=== PATIENT | female | born 1980 | race Hispanic/Latino ===

== ENCOUNTER 2018-08-14 13:57 | Observation (INO) | payer MEDICAID, OTHER ==
[~2018-08-14] VITALS: Ht 147.3 cm; Wt 49.5 kg
[2018-08-14] MEDS ORDERED: FERR1TAB8 PO (14:42)
[2018-08-14] MEDS ORDERED: SENN1TAB8 PO (14:42)
[2018-08-14] MEDS ORDERED: AMLO10TA PO (14:42)
[2018-08-14] MEDS ORDERED: B-12100T2 PO (14:42)
[2018-08-14] MEDS ORDERED: CALC1CAP PO (14:42)
[2018-08-14 16:40] LABS: BASO # 0.1 10^3/uL (0.0-0.2); BASO % 0.7 % (0.0-1.0); EOS # 0.2 10^3/uL (0.0-0.50); EOS % 2.4 % (0.0-3.0); HEMATOCRIT 24.6 % (36.0-47.0); HEMOGLOBIN 7.7 g/dl (12.0-15.5); LYMPH # 1.5 10^3/uL (1.5-4.5); LYMPH % 22.4 % (24.0-44.0); MEAN CORPUSCULAR HEMOGLOBIN 30.2 pg (27.0-33.0); MEAN CORPUSCULAR HGB CONC 31.3 g/dl (32.0-36.5); MEAN CORPUSCULAR VOLUME 96.5 fl (80.0-96.0); MONO # 0.7 10^3/uL (0.0-0.8); MONO % 10.1 % (0.0-5.0); NEUTROPHILS # 4.3 10^3/uL (1.8-7.7); PLATELET COUNT, AUTOMATED 291 10^3/uL (150-450); RED BLOOD COUNT 2.55 10^6/uL (4.00-5.40); WHITE BLOOD COUNT 6.7 10^3/uL (4.0-10.0)
[2018-08-14 17:41] LABS: ALBUMIN 3.6 GM/DL (3.2-5.2); ALT/SGPT 24 U/L (12-78); BILIRUBIN,DIRECT < 0.1 MG/DL (0.0-0.2); BILIRUBIN,TOTAL 0.3 MG/DL (0.2-1.0); BLOOD UREA NITROGEN 58 MG/DL (7-18); CALCIUM LEVEL 7.8 MG/DL (8.5-10.1); CARBON DIOXIDE LEVEL 23 MEQ/L (21-32); CHLORIDE LEVEL 105 MEQ/L (98-107); GLOMERULAR FILTRATION RATE 4.2 (>58); GLUCOSE, FASTING 100 MG/DL (70-100); LIPASE 254 U/L (73-393); MAGNESIUM LEVEL 2.9 MG/DL (1.8-2.4); PHOSPHORUS LEVEL 5.1 MG/DL (2.5-4.9); POTASSIUM SERUM 4.4 MEQ/L (3.5-5.1); SODIUM LEVEL 141 MEQ/L (136-145); TOTAL PROTEIN 7.4 GM/DL (6.4-8.2)
[2018-08-14] MEDS ORDERED: SENNA 8.6 MG TAB (SENOKOT) PO SCH (21:00)
[2018-08-14] MEDS ORDERED: MOM 30ML SUSPENSION UDC PO PRN (22:15)
[2018-08-14] MEDS ORDERED: ACETAMINOPHEN TAB 650MG DOSE (2X325MG) PO PRN (22:15)
--- NOTE | 2018-08-14 23:24 | ECGEPIP ---
Stationary ECG Study [facility] - ED Test Date: 2018-08-14 Pat Name: MARTINA rCowderpartment: Room: - Gender: F Locomotive Operator: : 1980 Requested By: Sayra Youssef Order Number: [id number] Reading MD: Jasmeet Gonzales Measurements Intervals [place] Rate: 75 P: 46 LA: 160 QRS: 5 QRSD: 93 T: 53 QT: 387 QTc: 433 Interpretive Statements SINUS RHYTHM SEPTAL MYOCARDIAL INFARCTION, OF INDETERMINATE AGE NO PRIORS FOR COMPARISON Electronically Signed On 08-14-2018 23:24:33 EDT by Jasmeet Gonzales
[2018-08-15] VITALS: BP 141/90
[2018-08-15 05:43] VITALS: BP 141/83
[2018-08-15 06:51] LABS: HEMATOCRIT 22.2 % (36.0-47.0); MEAN CORPUSCULAR HEMOGLOBIN 29.8 pg (27.0-33.0); MEAN CORPUSCULAR HGB CONC 31.5 g/dl (32.0-36.5); MEAN CORPUSCULAR VOLUME 94.5 fl (80.0-96.0); PLATELET COUNT, AUTOMATED 251 10^3/uL (150-450); RED BLOOD COUNT 2.35 10^6/uL (4.00-5.40); WHITE BLOOD COUNT 6.2 10^3/uL (4.0-10.0)
--- NOTE | 2018-08-15 07:11 | HPE ---
DATE OF ADMISSION: 08/14/2018 DOMESTIC HOUSEKEEPER: Dr. Powell CHIEF COMPLAINT: Needing dialysis. HISTORY OF PRESENT ILLNESS: Ms. Whalen is a 38-year-old female who is only Icelandic speaking and most of the history is obtained through her previous records from [facility] as well as formal translation services in our emergency room (ER) record #[id number]. She has a previous history of chronic kidney disease Stage 5, chronic anemia and hyperparathyroidism due to her renal disease. She had initially presented to [facility] and was found to be uremic and was started on dialysis as of 08/01/2018. She had a right tunneled catheter placed on 07/31/2018. Then was told to followup in the outpatient setting for dialysis. Given that she is an illegal immigrant and was facing deportation, [facility] was unable to help her obtain an outpatient dialysis seat and per their records they had suggested that she go to any hospital ER for a dialysis schedule. Currently, her schedule is for Monday, , Saturdays and she was scheduled to followup with her vascula surgeon on 08/17/2018. She also underwent vein mapping in her previous hospitalization on 08/02/2018 for a possible fistula, however, given that she is currently facing deportation she has a maple products supervisor who currently has halted this process and is working to reopen the case. At this time of presentation, she denies all complaints and states that she is no longer having any nausea, vomiting, headache or weight loss as she did initially when she presented in an uremic state to [facility]. She states that she just simply wants her dialysis continued as she was instructed by her prior hospital. Looking through her records from [facility], it appears that renal ultrasound from 07/30/2018 revealed a mal rotated left kidney and a right kidney that was not well visualized, however, appeared to be atrophic overall. She also underwent an echocardiogram that revealed an ejection fraction (EF) of 50-55%. In the ER, she was found to have BUN and creatinine of 58 and 10.80 and given her need to continue dialysis she will be admitted. Per reports, the ER has spoken to water main pipe layer commissions manager and they are agreeable to seeing the patient in the hospital and we will be working with [facility] Family [facility] (PFS) to help with her outpatient dialysis followup. PAST MEDICAL HISTORY: 1. End stage renal disease on dialysis Monday, and Monday. 2. Chronic anemia secondary to renal disease. 3. Hyperparathyroidism due to renal insufficiency. 4. Atrophic right kidney. 5. History of bilateral hydronephrosis. HOME MEDICATIONS: - Norvasc 10 mg by mouth daily - calcium acetate - vitamin B12 - ferrous sulfate - senna SURGICAL HISTORY: 1. Finger. 2. Cystourethroscope. SOCIAL HISTORY: Denies any alcohol, tobacco or illicit substances. Lives with the and has two children. FAMILY HISTORY: Father and sister have diabetes mellitus. Mother has had myocardial infarction(CT). Brother had kidney disease. ALLERGIES: - CIPROFLOXACIN REVIEW OF SYSTEMS: Denies fever, chills, weight loss. HEENT: Denies headache, blurry vision, eye pain, ear pain. Cardiac: Denies chest pain, palpitations or leg swelling. Pulmonary: Denies coughing, wheezing, shortness of breath. Gastrointestinal (GI): Denies nausea, vomiting, abdominal pain, changes in the mouth. Genitourinary (): Admits to decreased urine output. On dialysis. Skin: Denies new rashes or lesions. Musculoskeletal: Denies any new pains or aches. Neurologic: Denies any new paresthesias. PHYSICAL EXAMINATION: Vitals: Temperature 97.5, pulse 70s, respirations 16, blood pressure 134/86, MAP 102, pulse oximetry 98% on room air. General: Resting comfortably in bed in no acute distress. Pleasant, stated age female, Icelandic speaking only, requiring translational service. HEENT: Normocephalic, atraumatic. Extraocular muscles intact. Moist mucous membranes. Neck: Supple. Without jugular venous distention (JVD). Cardiac: Regular rate and rhythm with 2/6 systolic murmur heard best on the left sternal border. Normal S1 and S2. Lungs: Clear to auscultation bilaterally. Equal chest rise. No adventitious sounds. Abdomen: Soft. Nontender. Nondistended. Positive bowel sounds. Chest Wall: Right tunneled hemodialysis catheter present without any signs of infection. Extremities: 2+ radial pulses and dorsalis pedis pulses bilaterally. No clubbing or edema or calf tenderness. Musculoskeletal: Able to move all extremities independently. Strength equal throughout. Neurologic: No focal deficits. LABS: WBC 6.7, hemoglobin/hematocrit (H/H) 7.7 and 24.6, platelets 291. Electrolytes normal. BUN and creatinine 58 and 10.8. Magnesium and phosphorus 2.9 and 5.1. Liver panel normal. IMAGING: Chest x-ray read is pending, but by visualization it appears to be normal with a right tunneled catheter present. No lung infiltrates or effusions. ASSESSMENT AND PLAN: 1. End stage renal disease on hemodialysis Monday, and Monday. The patient recently started dialysis on 08/01/2018, but has failed to obtain an outpatient chair for dialysis given her illegal immigration status and currently facing deportation, which has been halted by her maple products supervisor. This is a significant social issue for her that is hindering her medical care. She will be admitted to be seen by nephrology who is on consult. Appreciate input. PFS is also consulted to help assist with this process in continuing her life saving dialysis while she is still here. Of note, she did undergo a vein mapping on 08/02/2018 while hospitalized at [facility] and is scheduled to followup with the vascular surgeon on 08/17/2018. 2. Anemia secondary to anemia of chronic disease from baseline end stage renal disease. Her hemoglobin is 7.7 on admission without any acute signs of blood loss. Per her previous records from [facility], it appears her baseline hemoglobin is around 8. Will reassess her blood levels after she undergoes her regularly scheduled dialysis. She may benefit from some EPO stimulating agents as per nephrology. 3. Heart failure with reduced ejection fraction (EF). Per reports from [facility], the patient has an EF of 50-55% with mild mitral regurgitation. Currently appears to be euvolemic on exam. Continue monitoring. 4. Hypertension. Controlled on her home dose of Norvasc. 5. Hyperparathyroidism secondary to chronic kidney disease. Continue home PhosLo. 6. Deep vein thrombosis (DVT) prophylaxis. Heparin subcutaneous. DISPOSITION: Will admit to the hospitalist service. Nephrology has been consulted. PFS consulted. My faculty preceptor for this patient encounter was physically present during the encounter and was fully available. All aspects of the patient interview, examination, medical decision making process, and medical care plan development were reviewed and approved by the faculty preceptor. The faculty preceptor is aware and concurs with the plan as stated in the body of this note and will attest to such by his/her co-signature. I have personally examined the patient along with resident physician. I have discussed above mentioned assessment and treatment plan with resident physician. Romulo REAVES
[2018-08-15 07:16] VITALS: BP 141/83
[2018-08-15] MEDS: HEPARIN SOD (PORCINE) 5000 UNITS/ML VIAL SC SCH ×2 (07:16→07:22)
[2018-08-15 07:24] LABS: CALCIUM LEVEL 7.2 MG/DL (8.5-10.1); CREATININE FOR GFR 12.1 MG/DL (0.55-1.30); GLOMERULAR FILTRATION RATE 3.7 (>58); MAGNESIUM LEVEL 2.9 MG/DL (1.8-2.4); PHOSPHORUS LEVEL 6.3 MG/DL (2.5-4.9); POTASSIUM SERUM 4.9 MEQ/L (3.5-5.1)
--- NOTE | 2018-08-15 07:59 | REP ---
CHEST, TWO VIEWS: Two views of the chest are performed. I have no prior study for comparison. There is no acute infiltrate. Heart is not enlarged. Mediastinal silhouette is unremarkable. A right central venous catheter is seen with the tip in the right atrium. There is mild elevation of the right hemidiaphragm. Visualized osseous structures appear unremarkable. IMPRESSION: No evidence of acute pulmonary disease. Electronically Signed by Blayne Schwartz MD 08/15/2018 10:36 A
[2018-08-15] MEDS ORDERED: FERROUS SULFATE 325MG TAB PO SCH (09:00)
[2018-08-15] MEDS ORDERED: amLODIPine 10 MG TAB PO SCH (09:00)
[2018-08-15] MEDS: CALCIUM ACETATE 667 MG GELCAP PO SCH ×2 (09:30→12:08)
[2018-08-15] MEDS ORDERED: DARBEPOETIN 100 MCG/0.5 ML *DIALYSIS* SYRINGE (J0882) IV SCH ×2 (09:45→10:15)
[2018-08-15 10:53] LABS: PTH INTACT 296.5 PG/ML (18.5-88.0)
[2018-08-15] MEDS ORDERED: HEPARIN 1,000 UNITS/ML 10ML VIAL (FOR RADIOLOGY& DIALYSIS ONLY) XX ONE (11:30)
[2018-08-15] MEDS ORDERED: HEPARIN 1,000 UNITS/ML 10ML VIAL (FOR RADIOLOGY& DIALYSIS ONLY) IV ONE (11:30)
[2018-08-15 14:16] LABS: HEPATITIS B CORE ANTIBODY IGM NEGATIVE (NEGATIVE); HEPATITIS B SURFACE ANTIBODY POSITIVE (POSITIVE); HEPATITIS B SURFACE ANTIGEN NEGATIVE (NEGATIVE); HEPATITIS C VIRUS ABY INDEX < 0.0 INDEX (<0.8)
--- NOTE | 2018-08-16 10:06 | CR ---
DATE OF CONSULTATION: 08/15/2018 REQUESTING PHYSICIAN: Dr. Dora Schwartz REASON FOR CONSULTATION: Management of end stage renal disease on hemodialysis with significant social issues. HISTORY OF PRESENT ILLNESS: History was obtained via help with the account administrator. The patient is a 38-year-old female with a past medical history of end stage renal disease recently started on hemodialysis, anemia of renal failure, hyperparathyroidism, and hypertension. She apparently was initiated on hemodialysis at [facility] on 08/01/2018 with a PermaCath placed on 07/31/2018. She is undocumented and has had trouble with outpatient hemodialysis chair arrangement. For that reason, there are significant socioeconomic barriers. 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 She tells me her last dialysis was in [place] on Monday and she presented to the emergency room last night requesting to be dialyzed. She was subsequently admitted for arrangement of hemodialysis today. She tells me that she is scheduled for fistula creation in [place] on Monday and she also states that she is unable to stay in the hospital further and plans to leave against medical advice after the completion of her dialysis treatment this afternoon. Labs are reviewed with the patient and we had a discussion regarding her anemia. She tells me that she has had blood transfusions in the past. PAST MEDICAL HISTORY: 1. Hypertension. 2. End stage renal disease on hemodialysis. 3. Secondary hyperparathyroidism of renal origin. 4. Anemia of chronic renal failure. HOME MEDICATIONS: - amlodipine - PhosLo - Vitamin B12 - iron sulfate SURGICAL HISTORY: 1. PermaCath placement. 2. Cystourethroscopy. ALLERGIES: - CIPROFLOXACIN SOCIAL HISTORY: Denies any alcohol, tobacco or illicit substances. Lives with her and has two children ages 3 and 5 for whom she is the sole caregiver. FAMILY HISTORY: Father and sister have diabetes. Brother had some kidney disease. REVIEW OF SYSTEMS: Constitutional: Denies fevers, chills or fatigue. Eyes: Denies visual changes, tearing or blurring. ENT: Denies rhinorrhea, sinusitis or tinnitus. Cardiac: She denies chest pain, palpitations or leg swelling. Pulmonary: Denies cough, wheeze or shortness of breath. GI: Denies nausea, vomiting or diarrhea. : Denies hematuria or dysuria. Skin: Denies any new rashes or lesions. Musculoskeletal: Denies any new myalgias or arthralgias. Neurologic: Denies syncope or seizures. Endocrine: Reports secondary hyperparathyroidism. Hematologic: Reports anemia and history of blood transfusion. Remainder of review of systems is as per history of present illness (HPI). PHYSICAL EXAMINATION: Vital Signs: Temperature 98.0. Pulse 82. Respiratory rate 16. Blood pressure 141/83. Saturating 97-100% on room air. Intake yesterday and output were not recorded. Weight on the bed scale today is 49.5 kg. General: Patient is seen sitting upright in bed, pleasant, awake, alert and in no distress. Speaks limited Turkish and we communicated via the aluminum can collector service. Normocephalic, atraumatic. Extraocular muscles are intact. Moist mucous membranes. Neck is supple. No jugular venous distention. Tunneled hemodialysis catheter present right chest wall. Cardiac: S1 and S2. No edema in the peripheries. Lungs: Clear to auscultation bilaterally. No crackle or rale. Abdomen: Soft. Nontender. There are bowel sounds. Extremities: Show palpable peripheral pulses. No clubbing, cyanosis or edema. Neurologic: No focal deficits. Oriented times four, interactive and appropriate. LABS: White count 6.2, hemoglobin 7.0, platelets 251. Sodium 139, potassium 4.9, bicarbonate 21, transferrin saturation 26%. Intact parathyroid hormone 296. Chest x-ray on 08/14/2018 with no significant findings. INPATIENT MEDICATIONS: - Tylenol as needed - amlodipine 10 mg by mouth daily - PhosLo 667 mg by mouth with meal - Aranesp 100 mcg IV at dialysis - ferrous sulfate 325 mg by mouth daily - heparin 5000 units subcutaneous every 12 hours - Senokot two tabs by mouth at bedtime PROBLEMS: 1. End stage renal disease. 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 The patient states last dialysis treatment was on Monday. She presented to the emergency room (ER) last night for dialysis. She was admitted for the same. We will be dialyzing her this afternoon with 2 unit blood transfusion and the patient is adamant that she is unable to stay in the hospital beyond that time frame and she plans to leave against medical advice as she has no one to care for her children while her works overnight. She is also apparently scheduled for a fistula creation on Monday in [place] and tells me that she will arrange for dialysis at that time as well. 2. Anemia of chronic renal failure. Hemoglobin 7.0, iron studies are acceptable. Continue oral iron supplement. She will receive Aranesp with dialysis and we will also transfuse two units of packed red blood cell with dialysis. 3. Secondary hyperparathyroidism of renal origin. Her parathyroid hormone level is acceptable. She continues on a phosphorus binder. 4. Hypertension. Blood pressures are acceptable and she continues on amlodipine. Plan of care has been discussed extensively with the patient and as well with the primary team. Thank you for involving me in the care of Ms. Palma.
--- NOTE | 2018-08-16 23:31 | DS.PDOC ---
Discharge Summary General Date of Admission Aug 14, 2018 at 19:29 Date of Discharge 08/15/18 Specialist/Consultants Involve: HOA MADRIGAL DO Discharge Summary PROCEDURES PERFORMED DURING STAY: [None]. ADMITTING DIAGNOSES: 1. . DISCHARGE DIAGNOSES: 1. End stage renal disease on dialysis Monday, and Monday. 2. Chronic anemia secondary to renal disease. 3. Hyperparathyroidism due to renal insufficiency. 4. Atrophic right kidney. 5. History of bilateral hydronephrosis. COMPLICATIONS/CHIEF COMPLAINT: End Stage Renal Disease,Esrd On Dialysis. HISTORY OF PRESENT ILLNESS: Ms. Whalen is a 38-year-old female who is only Maori speaking and most of the history is obtained through her previous records from [facility] as well as formal translation services in our emergency room (ER) record #[id number]. She has a previous history of chronic kidney disease Stage 5, chronic anemia and hyperparathyroidism due to her renal disease. She had initially presented to [facility] and was found to be uremic and was started on dialysis as of 08/01/2018. She had a right tunneled catheter placed on 07/31/2018. Then was told to followup in the outpatient setting for dialysis. Given that she is an illegal immigrant and was facing deportation, [facility] was unable to help her obtain an outpatient dialysis seat and per their records they had suggested that she go to any [facility] ER for a dialysis schedule. Currently, her schedule is for Monday, , Saturdays and she was scheduled to followup with her vascula surgeon on 08/17/2018. She also underwent vein mapping in her previous hospitalization on 08/02/2018 for a possible fistula, however, given that she is currently facing deportation she has a landing signal officer who currently has halted this process and is working to reopen the case. At this time of presentation, she denies all complaints and states that she is no longer having any nausea, vomiting, headache or weight loss as she did initially when she presented in an uremic state to [facility]. She states that she just simply wants her dialysis continued as she was instructed by her prior hospital. Looking through her recor ds from [facility], it appears that renal ultrasound from 07/30/2018 revealed a mal rotated left kidney and a right kidney that was not well visualized, however, appeared to be atrophic overall. She also underwent an echocardiogram that revealed an ejection fraction (EF) of 50-55%. In the ER, she was found to have BUN and creatinine of 58 and 10.80 and given her need to continue dialysis she will be admitted. Per reports, the ER has spoken to livestock judging coach import coordination and production head and they are agreeable to seeing the patient in the hospital and we will be working with Patient and Family Services (PFS) to help with her outpatient dialysis followup. HOSPITAL COURSE: Extensive discussion with patient using automatic buffer service. Patient adamant to leave AMA to care for her family. DISCHARGE MEDICATIONS: Please see below. LABORATORY DATA: Please see below. PROGNOSIS: Poor DISPOSITION: LEFT AMA TIME SPENT ON DISCHARGE: Greater than 30 minutes. Vital Signs/I&Os Vital Signs Date Time Temp Pulse Resp B/P (MAP) Pulse Ox O2 Delivery O2 Flow Rate FiO2 08/15/18 07:16 82 141/83 08/15/18 05:43 98.0 16 97 08/14/18 23:46 Room Air I&O- Last 24 Hours up to 6 AM 08/16/18 06:00 Intake Total 1100 ml Output Total 1300 ml Balance -200 ml Laboratory Data Labs 24H Laboratory Tests 2 08/16/18 11:06: Lab Scanned Report Transfusion Record Discharge Medications Scheduled Amlodipine Besylate (Norvasc) 10 Mg Tablet, 10 MG PO DAILY, (Reported) Calcium Acetate (Calcium Acetate) 667 Mg Capsule, 667 MG PO WM, (Reported) Cyanocobalamin (Vitamin B-12) (Vitamin B-12) 100 Mcg Tablet, 50 MCG PO DAILY, (Reported) Ferrous Sulfate (Ferrous Sulfate) 325 Mg Tablet, 325 MG PO DAILY, (Reported) Sennosides (Senna) 8.6 Mg Tablet, 2 TAB PO QHS, (Reported) Allergies Coded Allergies: ciprofloxacin (Verified Allergy, Unknown, 08/14/18) KARLI BRASHER MD Aug 16, 2018 23:31
== END 2018-08-15 17:55 | disposition home or self-care (01) ==
LOC: M ED 13:57 → M ED INP 19:29 → M MS4PR 08-15 00:01
PROVIDERS: ADMIT Internal Medicine; ATTEND Internal Medicine
DX: N18.6 End stage renal disease (principal); Z79.899 Other long term (current) drug therapy; D63.1 Anemia in chronic kidney disease; N25.81 Secondary hyperparathyroidism of renal origin; N26.1 Atrophy of kidney (terminal); Z87.448 Personal history of other diseases of urinary system; Z88.0 Allergy status to penicillin
CPT/HCPCS: 36415; 71046; 80048; 80076; 82728; 83550; 83690; 83735; 83970; 84100; 85025; 85027; 86704; 86705; 86706; 86803; 86850; 86900; 86901; 86920; 87340; 93005; 93041; 99285; J0882; P9016

== ENCOUNTER → 2018-12-28 | Outpatient (CLI) | payer MEDICAID, SELFPAY ==
[~2018-12-28] MED LIST: ACETAMINOPHEN 325 MG TAB As Ordered ONE; AMLO10TA PO; B-12100T2 PO; CALC1CAP PO; FERR1TAB8 PO; LIDOCAINE 2% MDV 20 ML VIAL As Ordered ONE; RENATAB6 PO; SENN1TAB8 PO; ZANT150T40 PO
--- NOTE | 2018-12-28 09:32 | ROOPDOC ---
[facility] Report Of Operation Report of Operation DATE OF PROCEDURE: 12/28/2018 PREPROCEDURE DIAGNOSES: End-stage renal disease, functioning left autogenous brachiocephalic arteriovenous fistula. POSTPROCEDURE DIAGNOSES: End-stage renal disease, auctioning left autogenous brachiocephalic arteriovenous fistula. PROCEDURE: Right internal jugular vein tunneled central venous catheter removal. SURGEON: Dr. Ai Weir M.D. RETAIL CUSTOMER SERVICE SPECIALIST: None INDICATION: Patient is 38-year-old female with end-stage renal disease who dialyzes through a left brachiocephalic autogenous arteriovenous fistula. Patient had placement of a right internal jugular vein tunneled central venous catheter for hemodialysis access until the fistula was stable for use. Patient will undergo removal of the right internal jugular vein tunneled central venous catheter. The procedure was explained and described to the patient in detail including drawing of pictures describing the procedure and pertinent anatomy associated with the procedure. Risks, benefits and alternative treatment options were discussed with the patient. Benefits included but were not limited to removal of the catheter with reduction in complications from central venous catheters. Alternative treatment options included but were not limited to no intervention. Risks included but were not limited to infection, bleeding, pne umothorax, hemothorax, possible need for open surgical intervention, adverse or allergic reaction to the local anesthetic, adverse or allergic reaction to the material used for surgical prepping and draping, nerve injury, cerebrovascular accident, myocardial infarction, pulmonary embolus, deep venous thrombosis, poor satisfaction, poor outcome, poor results, loss of limb and loss of life. Risks of not performing the procedure included but were not limited to infection, bleeding, central venous stenosis and/or thrombosis, loss of life and poor outcome. Patient's questions were answered. Patient voices understanding of these risks, benefits and alternative treatment options. Patient voices acceptance of these risks, benefits and alternative treatment options and consents to proceed with right internal jugular vein tunneled central venous catheter removal. There were no promises or guarantees made to the patient or her family regarding the procedure or outcome. ANESTHESIA: Local with 10 mL of 2% lidocaine ESTIMATED BLOOD LOSS: 5 mL IV FLUIDS: None DRAINS: None CONTRAST: None COMPLICATIONS: None IMPLANTS: None SPECIMENS: None PROCEDURE: Patient was prepped and draped in a standard surgical fashion. A time out was completed by myself and all the team members in the room involved at the initiation of the procedure, confirming the correct patient , procedure and laterality. Manual traction was applied to the catheter which did not release the subcutaneous cuff spontaneously. The skin and subcutaneous tissue overlying the catheter and tunnelled subcutaneous cuff were then anesthetized with 2% lidocaine. The cuff was then sharply dissected free via the entry site in the right chest. The catheter was then removed and manual compression applied at the exit site in the right chest and at the right internal jugular vein entry site for hemostasis. Once hemostasis was achieved, dressings were then applied. Patient tolerated the procedure well and was in stable condition at the end of the removal of the tunneled central venous catheter. All instrument, sponge and needle counts were correct at the end of the case. There were no complications. Dr. Weir was present for and directed the entire case. Patient was discharged in stable condition. The procedure and results were discussed with the patient at the end of the case with all of their questions being answered. The procedure and the results were discussed with the patient's at the end of the case with all of their questions being answered. Jude Weir MD Dec 28, 2018 09:32
[2018-12-28 09:35] VITALS: BP 138/89
== END ==
LOC: M IRPRO 08:04
PROVIDERS: ATTEND Surgery Vascular Surgery
DX: Z45.2 Encounter for adjustment and management of vascular access device (principal); N18.6 End stage renal disease; D63.1 Anemia in chronic kidney disease

== ENCOUNTER → 2019-10-11 | Outpatient (CLI) | payer MEDICAID, SELFPAY ==
[~2019-10-11] MED LIST changes: -ACETAMINOPHEN 325 MG TAB As Ordered ONE; +AMLO-140 PO; +ISOVUE-300 61% 50ML VIAL As Ordered ONE; +LIDOCAINE 1% MDV 20ML VIAL As Ordered ONE; -LIDOCAINE 2% MDV 20 ML VIAL As Ordered ONE; +MIDAZOLAM INJ 2MG/2ML VIAL (J2250 PER 1MG) As Ordered ONE; +SENN-80 PO; -SENN1TAB8 PO; +fentaNYL 100 MCG/2 ML INJECTION (J3010) As Ordered ONE
--- NOTE | 2019-10-11 15:55 | ROOPDOC ---
[facility] Report Of Operation Report of Operation DATE OF PROCEDURE: 10/11/19 PREPROCEDURE DIAGNOSES: End-stage renal disease with left brachiocephalic AV fistula poor venous flows, increased pulsatility, and increased bleeding after dialysis POSTPROCEDURE DIAGNOSES: Same PROCEDURE: 1. Ultrasound-guided exam of AV anastomosis and access left brachiocephalic fistula 2. Left upper extremity fistulogram and central venogram 3. Angioplasty left cephalic vein with 7 x 20 cutting balloon 4. Angioplasty left cephalic vein, subclavian vein with 8 x 200 [place] balloon 5. Completion venogram SURGEON: Bunny Gentile MD ANESTHESIA: Local anesthesia 2 mL lidocaine. Moderate intravenous conscious sedation was administered by Dr. Gentile. The patient was independently monitored by registered nurse assigned to the Department of radiology using automated blood pressure, EKG, and pulse oximetry. The detailed sedation record is permanently stored in the hospital information system. The following is a brief sedation record: Start time 14:54, stop time 15:20, Versed 1 mg IV, fentanyl 75 g IV. CONTRAST: 16 mL Isovue-300 INDICATION FOR PROCEDURE: This is a very pleasant 39-year-old patient with end- stage renal disease currently dialyzing with a left brachiocephalic AV fistula. She has had increased bleeding after dialysis, increased pulsatility and poor venous flows. Risks benefits and alternatives to the left upper extremity fistulogram and potential intervention were explained to the patient and she was agreeable to proceed. Informed consent was obtained. INTERPRETATION: 1. Ultrasound examination of the AV anastomosis showed it to be widely patent with no stenosis. 2. 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 It remains somewhat narrowed for about 3 cm, and then dilated up to about 7 mm diameter through the upper arm and shoulder. The junction with the subclavian vein is patent, but there is also a 30-40% stenosis in the subclavian vein. The central veins are widely patent. 3. After angioplasty of the cephalic vein tight stenosis with a 7 x 20 cutting balloon, there was marked improvement in the thrill and the flow with no extravasation. After angioplasty of the entire length of the outflow with an 8 x 200 [place] balloon, there was widely patent flow with no residual stenosis, no extravasation. The thrill of the fistula was excellent. REPORT OF OPERATION: A treating engineer was present via iPad for the entire procedure as the patient speaks only [place]. The patient was brought to the angiographic suite in stable condition and placed supine on the fluoroscopic table. Her left upper extremity was prepped and draped in a sterile fashion. A timeout was performed. Local anesthesia was administered to the skin and subcutaneous tissue. Ultrasound was used to examine the AV anastomosis and it was found to be widely patent. We then used ultrasound to access the cephalic vein with a microneedle and a wire was passed through this access and the needle was removed. A 4 [place] sheath was placed and flushed with saline. We then performed a fistulogram and central venogram. Please see interpretation above. Glidewire was advanced through the access in the sheath was exchanged for 7 [place] sheath and flushed with saline. We then advanced an O18 wire into the central system. We angioplasty a very tight stenosis in the cephalic vein with a 7 x 20 cutting balloon with excellent results. We followed this with angioplasty of the entire outflow with an 8 x 200 [place] balloon. Following this, there was a marked improvement in thrill in the fistula, no extravasation on completion venogram, and rapid flow to the central system with no obstruction or flow-limiting aleisha noses present. This concluded the procedure. We placed a Prolene [id number] suture around the sheath exit site and removed the sheath. Pressure was held for 2 minutes for good hemostasis and Steri-Strips were placed over the suture. Sterile dressings were applied. We will remove the suture prior to discharge. The patient was then taken to recovery in stable condition. She tolerated the procedure and the sedation very well, without complication. ESTIMATED BLOOD LOSS: Approximately 2 mL. COMPLICATIONS: None. PLAN: It is okay to resume her home diet medications. Is okay to use the fistula for dialysis. We would be happy to see her back for further clinic appointments or intervention as needed. We appreciate the opportunity to participate in the care of this patient. BUNNY GENTILE MD Oct 11, 2019 15:55
[2019-10-11 16:00] VITALS: BP 118/69
== END ==
LOC: M IRPRO 13:33
PROVIDERS: ATTEND Surgery Vascular Surgery
DX: T82.590A Other mechanical complication of surgically created arteriovenous fistula, initial encounter (principal); N18.6 End stage renal disease; X58.XXXA Exposure to other specified factors, initial encounter
CPT/HCPCS: 36902; 99152; 99153; C1725; C1769; C1894; J1644; J2250; J3010; Q9967

== ENCOUNTER → 2021-10-13 | Outpatient (CLI) | payer OTHER ==
[~2021-10-13] MED LIST changes: -ISOVUE-300 61% 50ML VIAL As Ordered ONE; -LIDOCAINE 1% MDV 20ML VIAL As Ordered ONE; -MIDAZOLAM INJ 2MG/2ML VIAL (J2250 PER 1MG) As Ordered ONE; -fentaNYL 100 MCG/2 ML INJECTION (J3010) As Ordered ONE
[2021-10-13 08:55] LABS: AMORPHOUS SEDIMENT SMALL (NEGATIVE); APPEARANCE, URINE CLEAR (CLEAR); BACTERIA, URINE AUTO NEGATIVE (NEGATIVE); BASO # 0.2 10^3/uL (0.0-0.2); BASO % 2.8 % (0.0-1.0); BILIRUBIN, URINE AUTO NEGATIVE (NEGATIVE); BLOOD, URINE BLOOD 1+ (NEGATIVE); COLOR, URINE STRAW (YELLOW); EOS # 0.1 10^3/uL (0.0-0.5); EOS % 1.8 % (0.0-3.0); GLUCOSE, URINE (UA) AUTO 1+ mg/dL (NEGATIVE); HEMATOCRIT 21.7 % (36.0-47.0); KETONE, URINE AUTO NEGATIVE (NEGATIVE); LEUKOCYTE ESTERASE, URINE AUTO NEGATIVE (NEGATIVE); LYMPH # 0.3 10^3/uL (1.5-5.0); LYMPH % 5.5 % (24.0-44.0); MEAN CORPUSCULAR HEMOGLOBIN 30.8 pg (27.0-33.0); MEAN CORPUSCULAR HGB CONC 32.3 g/dl (32.0-36.5); MEAN CORPUSCULAR VOLUME 95.6 fl (80.0-96.0); MONO # 0.5 10^3/uL (0.0-0.8); MONO % 8.8 % (2.0-8.0); MUCUS, URINE SMALL (NEGATIVE); NEUTROPHILS # 4.8 10^3/uL (1.5-8.5); NEUTROPHILS % 80.3 % (36.0-66.0); NITRITE, URINE AUTO NEGATIVE (NEGATIVE); PLATELET COUNT, AUTOMATED 474 10^3/uL (150-450); PROTEIN, URINE AUTO 2+ mg/dL (NEGATIVE); RBC, URINE AUTO 1 /HPF (0-3); RED BLOOD COUNT 2.27 10^6/uL (4.00-5.40); SPECIFIC GRAVITY URINE AUTO 1.003 (1.002-1.035); SQUAMOUS EPITHELIAL CELL UR AU 4 /HPF (0-6); UROBILINOGEN, URINE AUTO 0.2 mg/dL (0.0-2.0); WBC, URINE AUTO 6 /HPF (0-3)
[2021-10-13 09:15] LABS: CREATININE,RANDOM URINE 22.3 MG/DL; TOTAL PROTEIN,RANDOM URINE 81.4 MG/DL (0.0-12.0)
[2021-10-13 09:19] LABS: ALBUMIN 2.7 GM/DL (3.2-5.2); BILIRUBIN,DIRECT 0.3 MG/DL (0.0-0.2); BILIRUBIN,TOTAL 0.7 MG/DL (0.2-1.0); CALCIUM LEVEL 8.1 MG/DL (8.5-10.1); CHOLESTEROL RISK RATIO 4.083 (<5); CREATININE FOR GFR 6.43 MG/DL (0.55-1.30); GLOMERULAR FILTRATION RATE 7.5 (>58); PHOSPHORUS LEVEL 3.8 MG/DL (2.5-4.9); TOTAL PROTEIN 6.3 GM/DL (6.4-8.2)
== END ==
LOC: M LAB 08:18
PROVIDERS: ATTEND Internal Medicine Nephrology
DX: Z51.81 Encounter for therapeutic drug level monitoring (principal); Z79.899 Other long term (current) drug therapy; Z94.0 Kidney transplant status; N18.5 Chronic kidney disease, stage 5; D84.9 Immunodeficiency, unspecified

== ENCOUNTER → 2023-12-15 | Outpatient (REF) | payer OTHER, MEDICAID ==
[~2023-12-15] MED LIST changes: +SENN-186 PO; -SENN-80 PO
[2023-12-15 19:02] LABS: ALBUMIN 3.9 G/DL (3.2-5.2); BILIRUBIN,DIRECT 0.2 MG/DL (<0.4); BILIRUBIN,TOTAL 0.6 MG/DL (0.3-1.2); TOTAL PROTEIN 6.7 G/DL (5.7-8.2)
== END ==
LOC: M LAB REF 17:23
PROVIDERS: ATTEND Internal Medicine Nephrology
DX: R94.5 Abnormal results of liver function studies (principal)